=== PATIENT | female | born 1930 | race Hispanic/Latino ===

== ENCOUNTER 2017-03-09 00:40 | Inpatient (IN) | payer MEDICARE, OTHER ==
--- NOTE | 2017-03-09 01:24 | ED PDOC ---
Arrival/HPI - General Time Seen by Provider: 03/09/17 00:43 Historian: Family - History of Present Illness Narrative History of Present Illness (Text): 03/09/17 01:10 Rosalba James is an 87 year old female, whose past medical history includes bilateral hip replacement, kyphoscoliosis, and anxiety, who presents to the Emergency department brought in by EMS accompanied by niece complaining of hip pain. Niece states patient fell twice yesterday while walking at home and is now experiencing bilateral hip pain.Unclear why patient fell.Pt.doesn't recollect. Patient denies any headache,chest pain, abdominal pain, nausea, vomiting, or any other complaints. PMD: Dr. Diaz Orthopedist: Dr. Fan Symptom Onset: Gradual Symptom Course: Unchanged Activities at Onset: Light Context: Home Past Medical History - Provider Review Nursing Documentation Reviewed: Yes - Tetanus Immunization Tetanus Immunization: Unknown - Cardiac Hx Hypertension: Yes - Hematological/Oncological Hx Blood Transfusions: Yes Hx Blood Transfusion Reaction: No - Musculoskeletal/Rheumatological Hx Falls: Yes - Gastrointestinal Hx Gastrointestinal Disorders: No - Genitourinary/Gynecological Hx Genitourinary Disorders: No Hx Reproductive Disorders: No - Psychiatric Hx Substance Use: No - Surgical History Hx Appendectomy: Yes Hx Inguinal Hernia Repair: Yes Hx Orthopedic Surgery: Yes (BILAT HIPS) Other/Comment: CYCST REMOVAL - Anesthesia Hx Anesthesia: Yes Hx Anesthesia Reactions: No - Suicidal Assessment Feels Threatened In Home Enviroment: No Family/Social History - Physician Review Nursing Documentation Reviewed: Yes Family/Social History: Unknown Family HX Smoking Status: Never Smoked Hx Alcohol Use: No Hx Substance Use: No Hx Substance Use Treatment: No Allergies/Home Meds Allergies/Adverse Reactions: Allergies No Known Allergies Allergy (Verified 03/09/17 01:15) Home Medications: Home Meds Medication Instructions Recorded Confirmed Clonazepam [Klonopin] 1 mg PO QID 03/09/17 03/09/17 Metoprolol Succinate [Toprol XL] 25 mg PO HS 03/09/17 03/09/17 Review of Systems - Physician Review All systems were reviewed & negative as marked: Yes - Review of Systems Constitutional: Normal. absent: Fevers Eyes: Normal ENT: Normal Respiratory: Normal. absent: SOB, Cough Cardiovascular: Normal. absent: Chest Pain Gastrointestinal: Normal. absent: Abdominal Pain, Diarrhea, Nausea, Vomiting Genitourinary Female: Normal. absent: Dysuria, Frequency, Hematuria, Urine Output Changes Musculoskeletal: Arthralgias (+hip pain). absent: Back Pain, Neck Pain Skin: Normal. absent: Rash Neurological: Normal. absent: Headache, Dizziness Endocrine: Normal Hemo/Lymphatic: Normal Psychiatric: Normal Physical Exam Vital Signs Reviewed: Yes Vital Signs Temp Pulse Resp BP Pulse Ox 03/09/17 06:00 90 18 148/70 100 03/09/17 04:29 85 18 116/64 96 03/09/17 04:10 112 H 117/76 03/09/17 04:00 132 H 152/108 H 03/09/17 01:27 93 H 18 104/55 L 97 03/09/17 01:18 140 H 105/63 03/09/17 01:10 97.8 F 133 H 20 128/80 93 L Temperature: Afebrile Blood Pressure: Normal Pulse: Tachycardic Respiratory Rate: Normal Appearance: Positive for: Well-Appearing, Non-Toxic, Comfortable Pain Distress: None Mental Status: Positive for: Alert and Oriented X 3 - Systems Exam Head: Present: Atraumatic, Normocephalic Pupils: Present: PERRL Extroacular Muscles: Present: EOMI Conjunctiva: Present: Normal Mouth: Present: Moist Mucous Membranes Neck: Present: Normal Range of Motion Respiratory/Chest: Present: Clear to Auscultation, Good Air Exchange. No: Respiratory Distress, Accessory Muscle Use Cardiovascular: Present: Irregular Rhythm (Irregular, regular rhythm), Tachycardic. No: Murmurs Abdomen: Present: Normal Bowel Sounds. No: Tenderness, Distention, Peritoneal Signs Upper Extremity: Present: Normal Inspection. No: Cyanosis, Edema Lower Extremity: Present: NORMAL PULSES, Tenderness (Pain with flexion of right and left hip), Neurovascularly Intact, Capillary Refill < 2 s. No: Edema, Temperature Abnormalties Neurological: Present: GCS=15, CN II-XII Intact Skin: Present: Warm, Dry, Normal Color. No: Rashes Psychiatric: Present: Alert, Oriented x 3, Normal Insight, Normal Concentration Medical Decision Making ED Course and Treatment: 03/09/17 01:10 Impression: 87 year old female complaining of bilateral hip pain s/p 2 falls yesterday. Plan: -- CT Head w/o contrast -- EKG -- Chest X-ray -- XR Hip -- Labs, cardiac enzymes, blood type and screen -- Cardizem -- Reassess and disposition Progress Notes: Reviewed EKG, a fib at 134 bpm. Inferolateral T wave changes. 03/09/17 03:25 Reveiwed radiology, Chest X-ray shows chronic changes, no acute processes. XR Hips shows prosthesis in place, no acute fracture. 03/09/17 04:01 CT Head shows: Limitations: Suboptimal positioning. Brain: Moderate atrophy. No intracranial hemorrhage. No mass. Minimal decreased attenuation within periventricular white matter. No edema. Ventricles: No hydrocephalus. Bones/joints: Few small lucent calvarial lesions, nonspecific. No acute fracture. Soft tissues: Unremarkable. Vasculature: Minimal atherosclerotic disease of intracranial arteries. Sinuses: No acute sinusitis. Mastoid air cells: No mastoid effusion. Orbits: Unremarkable as visualized. IMPRESSION: 1. No intracranial hemorrhage. 2. Nonspecific white matter changes. 3. Incidental/non-acute findings are described above. 03/09/17 05:[address] Diaz, who is aware and agrees with plan. Accepts pt in to her service. Pt will go to Telemetry observation for near syncope, rapid atrial fibrillation, and hip pain. - Lab Interpretations Lab Results: 03/09/17 01:10 03/09/17 02:00 Lab Results 03/09/17 02:00: Blood Type O POSITIVE, Antibody Screen Negative, BBK History Checked Patient has bt 03/09/17 02:00: Sodium 142, Potassium 3.8, Chloride 106, Carbon Dioxide 28, Anion Gap 12, BUN 23 H, Creatinine 0.5 L, Est GFR ( Amer) > 60, Est GFR ( Non-Af Amer) > 60, Random Glucose 159 H, Calcium 9.8, Total Bilirubin 0.8, AST 33, ALT 30, Alkaline Phosphatase 74, Lactate Dehydrogenase 530, Total Creatine Kinase 113, Troponin I 0.19 H*, Total Protein 6.7, Albumin 3.9, Globulin 2.7, Albumin/Globulin Ratio 1.4 03/09/17 01:10: WBC 9.1, RBC 4.25, Hgb 13.6, Hct 41.4, MCV 97.4, MCH 32.0, MCHC 32.9, RDW 14.3, Plt Count 264, MPV 9.7 03/09/17 01:10: PT 11.8, INR 1.08, APTT 29.2 I have reviewed the lab results: Yes - RAD Interpretation Radiology Orders: 03/09/17 01:14 HEAD W/O CONTRAST [CT] Stat CHEST PORTABLE [RAD] Stat 03/09/17 01:15 Hip Bi with Pelvis Fall Protocol [HIP MIN 2V W/ PELVIS SILVESTRE] [RAD] Stat Crew Dispatcher: ED Physician, Radiologist - EKG Interpretation Interpreted by ED Physician: Yes Type: 12 lead EKG - Medication Orders Current Medication Orders: Diltiazem HCl 125 mg/ Sodium (Chloride) 125 mls @ 5 mls/hr IV .Q24H PRN; Protocol; 5 MG/HR PRN Reason: TITRATE PER MD ORDER Last Admin: 03/09/17 04:10 Dose: 5 mls/hr eMAR Start Stop Document 03/09/17 04:10 AD (Rec: 03/09/17 04:28 AD [id number]) Intravenous Solution Start Date 03/09/17 Start Time 04:10 MAY Pulse and Blood Pressure Document 03/09/17 04:10 AD (Rec: 03/09/17 04:28 AD [id number]) Pulse Pulse Rate (60-90) 112 Blood Pressure Blood Pressure (100/60-150/90) 117/76 Discontinued Medications Diltiazem HCl (Cardizem) 10 mg IVP ONCE ONE Stop: 03/09/17 01:17 Last Admin: 03/09/17 01:18 Dose: 10 mg IVP Administration Document 03/09/17 01:18 AD (Rec: 03/09/17 01:27 AD [id number]) Charges for Administration # of IVP Administrations 1 MAY Pulse and Blood Pressure Document 03/09/17 01:18 AD (Rec: 03/09/17 01:27 AD [id number]) Pulse Pulse Rate (60-90) 140 Blood Pressure Blood Pressure (100/60-150/90) 105/63 Diltiazem HCl (Cardizem) 10 mg IVP ONCE ONE Stop: 03/09/17 03:35 Last Admin: 03/09/17 04:00 Dose: 10 mg IVP Administration Document 03/09/17 04:00 AD (Rec: 03/09/17 04:27 AD [id number]) Charges for Administration # of IVP Administrations May Pulse and Blood Pressure Document 03/09/17 04:00 AD (Rec: 03/09/17 04:27 AD [id number]) Pulse Pulse Rate (60-90) 132 Blood Pressure Blood Pressure (100/60-150/90) 152/108 - Scribe Statement The provider has reviewed the documentation as recorded by the Scribjayne Bateman Provider Scribe Attestation: All medical record entries made by the Scribe were at my direction and personally dictated by me. I have reviewed the chart and agree that the record accurately reflects my personal performance of the history, physical exam, medical decision making, and the department course for this patient. I have also personally directed, reviewed, and agree with the discharge instructions and disposition. Disposition/Present on Arrival - Present on Arrival Any Indicators Present on Arrival: No History of DVT/PE: No History of Uncontrolled Diabetes: No Urinary Catheter: No History of Decub. Ulcer: No History Surgical Site Infection Following: None - Disposition Have Diagnosis and Disposition been Completed?: Yes Diagnosis: Near syncope, Frequent falls, Hip pain, Rapid atrial fibrillation Disposition: HOSPITALIZED Disposition Time: 04:11 Patient Plan: Admission Patient Problems: Current Active Problems Problem Status Onset Frequent falls Acute Hip pain Acute Near syncope Acute Rapid atrial fibrillation Acute Condition: STABLE
[2017-03-09 01:36] LABS: HEMOGLOBIN 13.6 g/dL (12.0-16.0); MEAN CELL VOLUME 97.4 fl (80.0-105.0); MEAN CORPUSCULAR HGB CONC 32.9 g/dl (31.0-37.0); MEAN PLATELET VOLUME 9.7 fl (7.0-11.0); RBC 4.25 10^6/uL (3.5-6.1); RED CELL DISTRIBUTION WIDTH 14.3 % (11.5-14.5); WHITE BLOOD COUNT 9.1 10^3/ul (4.5-11.0)
[2017-03-09 01:51] LABS: INR 1.08 (0.93-1.08); PARTIAL THROMBOPLASTIN TIME 29.2 Seconds (25.1-36.5); PROTHROMBIN TIME 11.8 SECONDS (9.4-12.5)
[2017-03-09 02:46] LABS: ALB/GLOB RATIO 1.4 (1.1-1.8); ALBUMIN 3.9 g/dL (3.0-4.8); ALT/SGPT 30 U/L (7-56); AST/SGOT 33 U/L (14-36); BLOOD UREA NITROGEN 23 mg/dL (7-21); CALCIUM 9.8 mg/dL (8.4-10.5); GFR AFRICAN-AMERICAN > 60; GFR NON-AFRICAN AMERICAN > 60
[2017-03-09 03:23] LABS: TROPONIN I 0.19 ng/mL
--- NOTE | 2017-03-09 04:00 | CT ---
EXAM: CT Head Without Intravenous Contrast CLINICAL HISTORY: 87 years old, female; Injury or trauma; Fall; Initial encounter; Concussion / head injury TECHNIQUE: Axial computed tomography images of the head/brain without intravenous contrast. All CT scans at this facility use one or more dose reduction techniques, viz.: automated exposure control; ma/kV adjustment per patient size (including targeted exams where dose is matched to indication; i.e. head); or iterative reconstruction technique. COMPARISON: No relevant prior studies available. FINDINGS: Limitations: Suboptimal positioning. Brain: Moderate atrophy. No intracranial hemorrhage. No mass. Minimal decreased attenuation within periventricular white matter. No edema. Ventricles: No hydrocephalus. Bones/joints: Few small lucent calvarial lesions, nonspecific. No acute fracture. Soft tissues: Unremarkable. Vasculature: Minimal atherosclerotic disease of intracranial arteries. Sinuses: No acute sinusitis. Mastoid air cells: No mastoid effusion. Orbits: Unremarkable as visualized. IMPRESSION: 1. No intracranial hemorrhage. 2. Nonspecific white matter changes. 3. Incidental/non-acute findings are described above.
[2017-03-09 05:28] LABS: URINE BILIRUBIN NEGATIVE (NEGATIVE); URINE BLOOD TRACE-INTACT (NEGATIVE); URINE GLUCOSE (UA) NEGATIVE (NEGATIVE); URINE LEUKOCYTE ESTERASE TRACE Leu/uL (NEGATIVE); URINE NITRATE POSITIVE (NEGATIVE); URINE PROTEIN TRACE mg/dL (<30 mg/dL); URINE UROBILINOGEN 0.2 E.U./dL (<1 E.U./dL)
[2017-03-09 05:30] LABS: URINE APPEARANCE CLEAR (CLEAR); URINE COLOR YELLOW (YELLOW)
[2017-03-09 05:40] LABS: URINE BACTERIA MANY (NEG); URINE EPITHELIAL CELLS 0 - 2 /hpf (0-5); URINE RBC 0 - 2 /hpf (0-2)
--- NOTE | 2017-03-09 08:48 | RAD ---
PROCEDURE: Radiographs of the pelvis and bilateral hips HISTORY: injury COMPARISON: None. FINDINGS: BONES: Pelvis: Unremarkable. Right hip:A minimally displaced cortical fracture is seen in the proximal femur adjacent to the femoral prosthesis Left hip:Unremarkable. JOINTS: Right hip: Unremarkable. Left hip: Unremarkable. Sacroiliac Joints: Unremarkable. Pubic symphysis: Unremarkable. SOFT TISSUES: Normal. OTHER FINDINGS: None. IMPRESSION: A minimally displaced cortical fracture is seen in the proximal femur adjacent to the femoral prosthesis
--- NOTE | 2017-03-09 08:48 | RAD ---
HISTORY: Fever COMPARISON: 03/20/2014. FINDINGS: LUNGS: The lungs are well inflated and clear. PLEURA: No significant pleural effusion identified, no pneumothorax apparent. CARDIOVASCULAR: There is severe cardiomegaly. OSSEOUS STRUCTURES: No significant abnormalities. VISUALIZED UPPER ABDOMEN: Normal. OTHER FINDINGS: None. IMPRESSION: Severe cardiomegaly.
--- NOTE | 2017-03-09 09:44 | CARD ---
APPROVED REPORT EKG Measurement Heart [id number] <Conclusion> A fib T wave abnormality, consider inferolateral ischemia Abnormal ECG
--- NOTE | 2017-03-09 10:18 | CT ---
PROCEDURE: CT of the hips HISTORY: possible fracture COMPARISON: Plain films 03/09/2017 TECHNIQUE: Radiation dose: Total exam DLP = 240 mGy-cm. This CT exam was performed using one or more of the following dose reduction techniques: Automated exposure control, adjustment of the mA and/or kV according to patient size, and/or use of iterative reconstruction technique. FINDINGS: Minimally displaced cortical fractures are seen in the proximal shaft of the right femur adjacent to the femoral portion of the right hip prosthesis. There is no displacement or angulation. IMPRESSION: Cortical fractures of the proximal shaft of the right femur
--- NOTE | 2017-03-09 12:29 | CON ---
DATE: ORTHOPEDIC CONSULTATION HISTORY OF PRESENT ILLNESS: The patient is an 87-year-old female with history of slipping and fall at home two or three times, who came to the ER with bilateral hip pain. She has previously had bilateral hip procedures for fractured hip for having bipolar hip prosthesis on the right and the left and when she fell with the osteopenic bone, she broke around the stem of the implant and it appears to be well controlled by the stem of the implant, so she does not need surgery for the contained fractures that are in the proximal femur with at least 4 inches of stem below the fracture, so that fracture will be held together spontaneously by the stem. So what she needs is good physical therapy with bed to chair activities, not ambulate for good 6 weeks until the fracture heals. So that means she will have to probably go to a subacute rehab after this hospital stay and to be cared for there by the fact that she needs to be not be weightbearing on both femur fractures, worse on the right than the left. Hopefully, we can get her to go to a facility, where they can carefully get her out of the bed to sit in a chair with help, because she cannot do it herself because of inability to put weight on the hips without undue pain and there is weakness in her upper extremities, but she will have to be taken to the chair with help of the nursing staff or the latest in at least 6 weeks till the bones heal. Surgery would not be compatible with her because of her age and the bones are so osteopenic, there is no hardware that would really hold up well, because it looks like she is on minimal ambulatory status to begin with. FINAL DIAGNOSES: Bilateral proximal femur fractures around the total hip procedure, stems that are holding the fracture together. Otherwise, the prosthesis looks intact and will have to watch her closely and give her good physical therapy, so when she gets out of bed, she does not hurt herself. Marc Fan DO
--- NOTE | 2017-03-09 13:11 | HP ---
HISTORY OF PRESENT ILLNESS: The patient is 87-year-old who has a very supportive niece, Makayla, who lives couple of blocks from the patient. She fell in the bathroom, was able to get up and walk. According to niece yesterday, she fell again, but was unable to get up. When she called her, she did not answer her phone, she went to see her, she was on the floor, did not lose consciousness, but she states she was so weak that she could not get up or walk, so she called ambulance and was brought to the Emergency Room. The patient currently complained of right hip and back pain. PAST MEDICAL HISTORY: She has significant past medical history of: 1. Hypertension. 2. Anxiety disorder. 3. Status post right hip replacement. 4. Kyphoscoliosis. ALLERGIES: THE PATIENT IS NOT ALLERGIC TO ANY MEDICATIONS. MEDICATIONS AT HOME: The patient is on Xanax 0.5 four times a day and vitamin D one q. weekly. SOCIAL HISTORY: She is single, lives by herself. She has a niece around who is very supportive. Neurologically, the patient was very supportive. REVIEW OF SYSTEMS: Significant for being very anxious. Complained of back pain and right hip pain. PHYSICAL EXAMINATION: GENERAL: She is awake, alert, oriented, and communicative. VITAL SIGNS: She is afebrile, pulse 94, respirations 19, and blood pressure 125/82. LUNGS: Bilateral good airflow. No rhonchi or crackles. HEART: S1 and S2 audible. ABDOMEN: Soft and nontender. No rebound or guarding. NEUROLOGIC: The patient is awake, alert, oriented, and communicative. LABORATORY DATA: WBC is 9.1, hemoglobin is 13, hematocrit is 41, and platelets 264. PT 11.8 and INR 1.08. Chemistry sodium 142, potassium 3.8, chloride 106, CO2 28, BUN 23, creatinine 0.5, and blood sugar of 159. LFTs are within normal limits. Troponin is 0.19. Urinalysis is unremarkable. ASSESSMENT: 1. Status post fall. 2. Unstable gait. 3. Deconditioning, difficulty walking. 4. Kyphoscoliosis. 5. Anxiety disorder. 6. New onset atrial fibrillation. PLAN: Currently, the patient is on telemetry. She is on Cardizem. We started small dose of diltiazem. Given the patient's age and high risk to fall, it is currently difficult to start her on anticoagulant. I will discuss with Dr. Mei and the patient's family and make further decisions. Barry Diaz MD
[2017-03-09 14:24] LABS: TROPONIN I 0.14 ng/mL
[2017-03-09 14:31] VITALS: BMI 16.1
[2017-03-09] MEDS ORDERED: Pneumococcal 23-Valent Vaccine IM ONE (14:32)
[2017-03-09] MEDS ORDERED: Influenza Vaccine 60 mcg/0.5 mL SYR (4YR UP) IM ONE (14:32)
--- NOTE | 2017-03-09 17:00 | CON ---
DATE: 03/09/2017 NEUROLOGY CONSULTATION CHIEF COMPLAINT: Status post fall. HISTORY OF PRESENT ILLNESS: This is an 87-year-old woman with a history of hypertension, anxiety disorder, status post right hip replacement, kyphoscoliosis, who fell in the bathroom, was able to get up and walk. According to her niece, she fell again, but was unable to get up, therefore came to the hospital and was generally weak. Her CAT scan of the head showed no acute intracranial abnormality. She had right hip pain. She had a CT of the hip which showed cortical fractures of the proximal shaft of the right femur and Orthopedic is on board and recommends physical therapy, which I agree with. No dizziness at this time. She is doing much better. PAST MEDICAL HISTORY: Hypertension, anxiety disorder, status post right hip replacement, kyphoscoliosis. ALLERGIES: NO KNOWN DRUG ALLERGIES. MEDICATIONS: Reviewed by nursing reconciliation sheet. SOCIAL HISTORY: No illicit drug use, smoking, or EtOH abuse. REVIEW OF SYSTEMS: A 14-point review of systems negative except in the HPI. FAMILY HISTORY: Noncontributory. PHYSICAL EXAMINATION: VITAL SIGNS: Temperature 98, pulse rate of 77, blood pressure of 106/62, respiratory rate 19, oxygen saturation 98% via room air. GENERAL: The patient is sitting up in bed, in no acute distress. HEENT: Head is atraumatic and normocephalic. PERRLA. Extraocular muscles are intact. NECK: Supple. No JVD. No adenopathy noted. LUNGS: Clear to auscultation. No adventitious sounds. HEART: S1 and S2. Normal rate and rhythm. No murmurs, rubs, or gallops. ABDOMEN: Soft, nontender, and nondistended. Bowel sounds are present. EXTREMITIES: No clubbing. No cyanosis. Peripheral pulses are 2+ felt bilaterally. NEUROLOGIC: The patient is alert and oriented to person, place, month, and year. Speech is fluent without any errors. Cranial nerves II through XII are intact. Motor exam: Moves all extremities equally. Slight increased tone throughout. Sensory exam: Light touch, pinprick, proprioception, and vibration is intact. DTRs are 2+ and 1 at both the knees and ankles. Coordination: [id number] intact. Gait is deferred for now. LABORATORY DATA: Sodium is 142, potassium is 3.9, chloride of 106, carbon dioxide of 28, BUN of 22, creatinine 0.5, and random glucose of 159. ASSESSMENT AND PLAN: It is a 87-year-old woman with history of hypertension, anxiety disorder, status post right hip replacement, kyphoscoliosis who had near syncopal events and history of falls. She had a recent fall where she had right side of her hip. She has history of bilateral proximal femur fractures and total hip replacement procedures. She has cortical fractures seen on the CT scan of the hip over the right shaft of the femur. Orthopedics has evaluated the patient, who said that surgery could not be compatible because of her age and her bones are very osteopenic. She is deconditioned. At this time, I recommend, 1. Orthostatic vital signs. 2. Given her new onset atrial fibrillation and HAS-BLED score is above 3, would be extreme risk for her to be on anticoagulation due to risk of multiple falls. 3. We will get Physical Therapy/Occupational Therapy assessment and would likely need a subacute rehab. 4. Monitor electrolytes and correct accordingly. 5. Follow with Orthopedics recommendation in regards to her osteopenia and history of hip replacement. At this time, thank you for this consult. No further neurological workup needed. Joaquín Jackson MD
[2017-03-09] MEDS: Metoprolol Succinate 25 mg XL Tab PO SCH (22:59)
[2017-03-10] MEDS: Pantoprazole 40 mg EC Tab PO SCH (06:00)
[2017-03-10 06:39] LABS: ALB/GLOB RATIO 1.4 (1.1-1.8); ALBUMIN 3.7 g/dL (3.0-4.8); ALT/SGPT 31 U/L (7-56); AST/SGOT 30 U/L (14-36); BLOOD UREA NITROGEN 22 mg/dL (7-21); GFR AFRICAN-AMERICAN > 60; GFR NON-AFRICAN AMERICAN > 60; MAGNESIUM 2.3 mg/dL (1.7-2.2)
[2017-03-10 06:50] LABS: TROPONIN I 0.08 ng/mL
[2017-03-10 06:58] LABS: FREE T4 1.11 ng/dL (0.78-2.19)
--- NOTE | 2017-03-10 09:40 | CON ---
DATE: 03/09/2017 LOCATION: The patient is in room 277, bed 1. REASON FOR CONSULTATION: Atrial fibrillation, hypertension. HISTORY OF PRESENT ILLNESS: An 87-year-old female who lives alone. According to niece, patient fell twice. First time, she was able to get up, but second time, she fell but could not get up so when she did not answer the phone call of the niece, the niece went there and found her lying on the floor but she was not unconscious. Patient was brought to the hospital, found to have atrial fibrillation, and patient complained of right hip and back pain. Patient denied any palpitation or chest pain or shortness of breath. PAST MEDICAL HISTORY: Positive for status post right hip replacement, kyphoscoliosis, hypertension, anxiety disorder. ALLERGIES: PATIENT DENIES ANY ALLERGIES. MEDICATIONS AT HOME: Patient was on Xanax 0.5 mg 4 times a day and vitamin D once a day. PERSONAL HISTORY: No history of smoking or drinking. REVIEW OF SYSTEMS: All the systems reviewed. Positive mentioned in the history, otherwise, negative. PHYSICAL EXAMINATION: VITAL SIGNS: Blood pressure 143/68, respirations 19, pulse 72, and temperature 98.1. HEENT: Head is normocephalic. Eyes; pupils are normal. Conjunctivae are normal. Nose and throat are normal. NECK: JVP low. Carotids are equal. THORAX: AP diameter normal. LUNGS: Clear. CARDIOVASCULAR: S1 and S2. ABDOMEN: Soft. Nontender. No organomegaly. Bowel sounds are normal. EXTREMITIES: No clubbing. No cyanosis. LABORATORY DATA: WBC 9.1, hemoglobin 13.6, hematocrit 41.4, and platelets 264. Sodium 142, potassium 3.8, BUN 23, creatinine 0.5. Total bilirubin, AST, ALT normal. Cholesterol 131, triglycerides 74, HDL 48, LDL 70. Troponin first one was 0.19, second 0.14. EKG showed atrial fibrillation, heart rate around admission was about 134, some ST-T changes. Chest x-ray showed clear lungs, there is cardiomegaly present. DIAGNOSES: Status post fall due to unsteady gait, kyphoscoliosis, hypertension, anxiety disorder, new onset of atrial fibrillation, troponin elevation. PLAN: Troponin elevation suggestive of non-ST elevation myocardial infarction, anticoagulation for atrial fibrillation is risky because the patient has tendency to fall; however, start the patient on aspirin one daily. Patient is already on Cardizem drip 5 mg daily. Patient already on Mobic 15 mg p.o. daily, also on Protonix 40 daily, metoprolol succinate 25 mg p.o. at bedtime, Xanax 0.5 q.i.d. The patient's heart rate is around 80, so we will discontinue the Cardizem drip. Patient is already on Cardizem 30 mg p.o. t.i.d. Adding Plavix along with Mobic and aspirin might be risk for also GI bleeding in this 87-year-old fragile patient. We will do echocardiogram, recheck TSH. We will discuss with you and follow with you. Stacy Smith MD
--- NOTE | 2017-03-10 13:04 | PN ---
DATE: REASON FOR CONSULTATION: Atrial fibrillation and hypertension. SUBJECTIVE: The patient denies any chest pain, shortness of breath or any palpitations. OBJECTIVE: GENERAL: Not in apparent distress. VITAL SIGNS: As follows; temperature afebrile, heart rate 99, and blood pressure 130/71. HEENT: PERRLA intact. NECK: Supple. No carotid bruits. No thyromegaly. CHEST: Clear to auscultation. HEART: S1 and S2 regular. ABDOMEN: Soft. EXTREMITIES: Clubbing and cyanosis negative. LABORATORY DATA: WBC 9.2, hemoglobin 13.2, hematocrit 41.4, and platelet count 264. Chemistry shows sodium 142, potassium 4, chloride 104, carbon dioxide 32, anion gap of 10, BUN 22, and creatinine 0.9. Troponin 0.19, 0.14, and 0.08. TSH is 0.32. Coagulation profile INR 1.08. IMPRESSION AND PLAN: Status post fall, unsteady gait, kyphoscoliosis, hypertension, anxiety disorder, atrial fibrillation, and elevated troponin. The patient on admission with troponin 0.19 and 0.14, now the troponin trended to 0.08. Status post fall. Positive troponin. Possible nonischemic myocardial infarction, possible coronary artery disease asymptomatic, atrial fibrillation new onset. Troponin elevated because of the age and unsteady gait. Hard of hearing, all these comorbidities asymptomatic. We will treat patient conservatively. Continue Cardizem 30 mg and change Cardizem [address] Smith. Continue baby aspirin. Continue beta-wilberto. Followup serial CPK, troponin with echo for LV function. We will do repeat SMA-7 and CBC tomorrow and the troponin trend tomorrow. Awaiting for TSH to be completed. We will add TSH. Because the patient is asymptomatic, unsteady gait, high risk for long-term anticoagulation though the patient is in atrial fibrillation, also the patient is asymptomatic and no complaints of any chest pain, borderline troponin positive,so we will try to treat medically. We will get echo to assess LV function. Repeat troponin in the morning. Stacy Mei MD [facility] # [id number]
[2017-03-10] MEDS: cefTRIAXone 1 gm 1 GM/100 ML BAG IVPB SCH (14:28)
--- NOTE | 2017-03-10 21:36 | PN ---
DATE: SUBJECTIVE: The patient is an 87-year-old who fell twice at home and when brought to ER, was found to have AFib. Because of high risk fall, anticoagulant was not started; however, she is on diltiazem and her heart rate seems to be controlled. PHYSICAL EXAMINATION: GENERAL: Looks very anxious; however, eating and tolerating. VITAL SIGNS: She is afebrile, pulse 69, respirations 18, and blood pressure 117/67. LUNGS: Bilateral good airflow. No rhonchi or crackles. HEART: S1 and S2 audible. Irregular rate control. ABDOMEN: Soft and nontender. No rebound. No guarding. NEUROLOGIC: The patient is awake and alert. Able to communicate. She is very kyphotic and pigeon-shaped chest. EXTREMITIES: Bilateral leg, no edema. Has difficulty moving her lower extremities. LABORATORY DATA: Her sodium 142, potassium 4.0, chloride 104, CO2 of 32, BUN 22, creatinine 0.6, and blood sugar of 102. LFTs are within normal limits. Her third troponin is 0.08. Urine cultures are negative. Her CT scan of the hip shows cortical fracture of proximal shaft of right femur. ASSESSMENT: 1. New onset atrial fibrillation. 2. Status post fall. 3. Kyphoscoliosis. 4. Anxiety disorder. 5. Unstable gait. PLAN: The patient needs subacute rehab. She is refusing to go any place. She in home. She is always well rested and as far as her AFib is concerned, we will give her medication to rate control and it was mutually decided talking to the patient's niece and the patient has felt there is high risk to put her on any anticoagulation, so web content & social media manager will talk to the patient, if she is agreeable, she will be transferred to subacute rehab. I will discontinue telemetry since her heart rate is under control and we will make discharge plan. If the patient agree for TCU, she will be transferred to TCU tomorrow; otherwise, subacute rehab versus the home therapy. Barry Diaz MD
[2017-03-10] MEDS: Metoprolol Succinate 25 mg XL Tab PO SCH (22:05)
[2017-03-11] MEDS: Pantoprazole 40 mg EC Tab PO SCH (05:50)
[2017-03-11 05:55] LABS: TROPONIN I 0.05 ng/mL
[2017-03-11 06:10] LABS: BLOOD UREA NITROGEN 18 mg/dL (7-21); CALCIUM 9.8 mg/dL (8.4-10.5); GFR AFRICAN-AMERICAN > 60; GFR NON-AFRICAN AMERICAN > 60; MAGNESIUM 2.1 mg/dL (1.7-2.2)
[2017-03-11 06:28] VITALS: RESP 20; TEMP 98.1; O2SAT 93
[2017-03-11] MEDS: cefTRIAXone 1 gm 1 GM/100 ML BAG IVPB SCH (10:28)
--- NOTE | 2017-03-11 13:18 | PN ---
DATE: An 87-year-old female with paraprosthetic fracture right femur around the stem of a well placed bipolar prosthesis. Her pain is much less. We are going to try to get her up out of bed and start ambulation with a walker, protected weightbearing to tolerance. This fracture is stable because of the stem of the prosthesis is holding the fracture together and with the weightbearing that is going to occur with walking, it will actually compress the fracture to stimulate the heal sooner. I will follow her in the hospital, rehab hospital or at home. Marc Fan DO
--- NOTE | 2017-03-11 20:45 | PN ---
DATE: SUBJECTIVE: The patient is an 87-year-old, seen and examined, lying in bed, seems to be comfortable except low back pain and right hip pain. PHYSICAL EXAMINATION: VITAL SIGNS: She is afebrile. pulse 97, respirations 20, and blood pressure 120/80. LUNGS: Bilateral fair airflow. No rhonchi or crackle. HEART: S1 and S2 audible. ABDOMEN: Soft and nontender. No rebound. No guarding. NEUROLOGIC: The patient is awake, alert, and oriented. EXTREMITIES: Able to move lower extremity because of limited mobility secondary to pain. She has significant kyphoscoliosis, also bilateral leg, no edema. LABORATORY DATA: Sodium 138, potassium 4.1, chloride 102, CO2 of 20, BUN 18, creatinine 0.6, blood sugar of 102. Urinalysis is unremarkable. Blood culture shows E. coli. ASSESSMENT AND PLAN: 1. Status post fall. 2. Right femur nondisplaced fracture being held by previous prosthesis. 3. Escherichia coli urinary tract infection. 4. Anxiety disorder. PLAN: We will start the patient on p.o. Cipro. Discussed with Dr. Marc Fan, who thinks the patient can help protective weightbearing. The patient is not clear if she want to go to subacute rehab. However, she is willing to go to TCU. Barry Diaz MD
[2017-03-11] MEDS: Metoprolol Succinate 25 mg XL Tab PO SCH (22:15)
--- NOTE | 2017-03-11 23:11 | PN ---
DATE: 03/11/2017 REASON FOR CONSULTATION AND FOLLOWUP: Atrial fibrillation and hypertension. SUBJECTIVE: The patient denies any chest pain, shortness of breath or any palpitations. PHYSICAL EXAMINATION: VITAL SIGNS: As follows; temperature afebrile, heart rate 64, and blood pressure 123/80. HEENT: PERRLA intact. NECK: Supple. No carotid bruits. No thyromegaly. CHEST: Clear to auscultation. HEART: S1 and S2 regular. ABDOMEN: Soft. EXTREMITIES: Clubbing and cyanosis negative. LABORATORY DATA: Blood workup as follows; WBC 9.2, hemoglobin 13.0 and hematocrit 41.6. IMPRESSION: Status post fall, unsteady gait, kyphoscoliosis, hypertension, anxiety disorder,atrial fibrillation, and elevated troponin. In view of above, treat the patient medically, not a candidate for invasive workup. Continue Cardizem 60 mg. Continue metoprolol succinate 25 mg, not a candidate for long-term anticoagulation. Thank you *------* for providing us the opportunity in taking care of the patient, Rosalba James. Stacy Mei MD cc: *------*
[2017-03-12] MEDS: Pantoprazole 40 mg EC Tab PO SCH (05:46)
[2017-03-12] MEDS ORDERED: Cefpodoxime (Vantin) 200 mg Tab PO SCH (10:00)
--- NOTE | 2017-03-12 12:40 | PN ---
DATE: LOCATION: In room 576, bed 2. SUBJECTIVE: Patient was initially admitted on 03/09/2017 for paraprosthetic fracture of the right worse than the left femur with a well-impacted fracture in the proximal part of the femoral shaft contained by the stem of the total hip replacement on the femur. I would like to treat the patient conservatively because of the nature of the fracture is well contained by the femoral stem of the total hip replacement and the fracture is stable and we will allow her to put weight on it and hopefully it will consolidate to the point where she does not need surgery. Surgery would only be needed if she cannot tolerate the discomfort. It appears to be that she is less pain today which is 03/12/2017 compared to when she came in on 03/09/2017. ASSESSMENT AND PLAN: So see how she does hopefully, she can go to TCU for ambulation with a walker. I explained to the family she should go to our subacute rehab hospital or emergency room because she really should not live alone anymore because the bones are so fragile and her age of 87 puts her in a category where she could have a fall very easily if left alone. So I will follow her in the hospital, and hopefully the fracture consolidates enough not to have surgery, and if anything happens inappropriate, she may need a major surgery to stabilize the right femur which will have to be a large metal plate going from the hip down to the knee. Marc Fan DO [facility]
--- NOTE | 2017-03-12 15:36 | PN ---
DATE: 03/12/2017 LOCATION: The patient is in room 576, bed 2. REASON FOR CONSULTATION: Atrial fibrillation and hypertension. SUBJECTIVE: The patient is lying flat in bed, without chest pain, shortness of breath or palpitation. PHYSICAL EXAMINATION: VITAL SIGNS: Blood pressure 122/79, when I examined the patient, the pulse was around 110 to 120 per minute irregular due to atrial fibrillation, the patient is afebrile, and respirations are 18. HEENT: Head is normocephalic. Eyes; pupils are normal. Conjunctivae normal. Nose and throat normal. NECK: JVP low. Carotids are equal. THORAX: AP diameter normal. The patient has kyphoscoliosis. LUNGS: No significant rales. CARDIOVASCULAR: S1 and S2. ABDOMEN: Soft. No tenderness. No organomegaly. Bowel sounds normal. EXTREMITIES: No clubbing. No cyanosis. LABORATORY DATA: WBC 9.1, hemoglobin 13.6, hematocrit 41.4, and platelets 264. Sodium 138, potassium 4.1, BUN 18, and creatinine 0.6. Troponin is 0.05; on medical floor, one troponin was 0.19, second was 0.14, third was 0.08. DIAGNOSES AND PLAN: The patient had multiple falls, atrial fibrillation, kyphoscoliosis, hypertension, elevated troponin when the patient was on medical floor. The patient's falls, so she is not a candidate for anticoagulation. Also it was decided to treat the patient's elevated troponin medically. The patient is not a good candidate for cardiac catheterization at this point. The patient also gets confused. The patient is on metoprolol succinate 25 daily. We will give stat metoprolol 25 regular now and then we will change metoprolol succinate to 50 mg daily to better control the heart rate. The patient is on aspirin one a day. We will follow with you. Stacy Smith MD
[2017-03-12 16:04] VITALS: BP 123/74; PULSE 86
[2017-03-12] MEDS ORDERED: Metoprolol Succinate 50 mg XL Tab PO SCH (18:00)
--- NOTE | 2017-03-13 02:58 | DS ---
HISTORY OF PRESENT ILLNESS: The patient is an 87-year-old who fell at home twice. When she came to ER, she was found to be in AFib and was seen by Dr. Smith. Given her age and comorbidities and multiple fall, it was decided not to put her on anticoagulations, so she is just on rate control medication. After fall, she also sustained injury to her right femur and was evaluated by Dr. Fan and was advised protected weightbearing and being transferred to [facility] for rehab. PHYSICAL EXAMINATION: GENERAL: She is awake, alert, oriented, and communicative. VITAL SIGNS: She is afebrile, pulse 83, respirations 18, and blood pressure 123/74. LUNGS: Bilateral fair airflow. No rhonchi or crackles. HEART: S1 and S2 audible. ABDOMEN: Soft and nontender. No rebound. No guarding. NEUROLOGIC: The patient is awake, alert, oriented, able to communicate, and has difficulty walking because of the pain in both hips. LABORATORY DATA: Today's lab work shows WBC 3.6, hemoglobin 10.4, hematocrit 35.1, and platelet 98. Chemistry, sodium 140, potassium 4.3, chloride 105, CO2 of 27, BUN 19, creatinine 0.5, and blood sugar of 95. Urinalysis is unremarkable. ASSESSMENT: 1. New onset of atrial fibrillation. 2. Status post fall. 3. Kyphoscoliosis. 4. Right femur shaft cortical fracture. 5. Hypertension. 6. Deconditioning and difficulty walking. PLAN: The patient agreed for subacute rehab. She is being transferred to [facility] today. We will discharge her on diltiazem 60 mg three times a day, Cipro 250 mg twice a day for 5 days, aspirin 81 mg daily, Mobic 15 mg daily, Protonix 40 daily, metoprolol 50 mg daily, and Xanax q.6 hours. She will be followed by Dr. Barnett in [facility]. Barry Diaz MD
== END 2017-03-12 17:37 | DRG 534 ==
LOC: ED 00:40 → ERH 04:11 → 2RSO 10:24 → 5RSO 03-11 11:51
PROVIDERS: ADMIT Internal Medicine; ATTEND Internal Medicine
DX: S72.392A Other fracture of shaft of left femur, initial encounter for closed fracture (principal); M97.01XA Periprosthetic fracture around internal prosthetic right hip joint, initial encounter; N39.0 Urinary tract infection, site not specified; I48.91 Unspecified atrial fibrillation; M41.9 Scoliosis, unspecified; R55 Syncope and collapse; F41.9 Anxiety disorder, unspecified; I10 Essential (primary) hypertension; B96.20 Unspecified Escherichia coli [E. coli] as the cause of diseases classified elsewhere; W18.30XA Fall on same level, unspecified, initial encounter; R26.2 Difficulty in walking, not elsewhere classified; R29.6 Repeated falls; Y93.01 Activity, walking, marching and hiking; Y92.012 Bathroom of single-family (private) house as the place of occurrence of the external cause; Z79.01 Long term (current) use of anticoagulants

== ENCOUNTER 2017-03-24 13:16 | Inpatient (IN) | payer OTHER ==
[2017-03-23 21:25] VITALS: BMI 17.0
[2017-03-23 22:16] VITALS: PULSE 120
[2017-03-24] MEDS ORDERED: Morphine PCA 1 mg/ml (25ml) 25 ML IV PRN (13:40)
[2017-03-24] MEDS ORDERED: Pneumococcal 23-Valent Vaccine IM ONE (20:03)
[2017-03-24] MEDS ORDERED: Influenza Vaccine 60 mcg/0.5 mL SYR (4YR UP) IM ONE (20:03)
[2017-03-24] MEDS: Morphine PCA 1 mg/ml (25ml) 25 ML IV PRN (21:31)
[2017-03-25] MEDS: Morphine PCA 1 mg/ml (25ml) 25 ML IV PRN ×3 (06:03→23:18)
--- NOTE | 2017-03-25 11:21 | CP.PCM.CON ---
History of Present Illness - History of Present Illness History of Present Illness: 87 year old female with history of HTN, hip fracture who was sent from [facility] with altered mental stats/weakness. 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 She is now under [facility] PMHx:A fib, syncope, frequent falls, hip fracture. Social History; Non smoker, no alcohol or drugs. Family History: Non contributory Advance Care Planning: The patient has POA directive, Makayla Cheung niece. The POA has made her DNR/DNI Review of Systems:As per HPI, the patient is comatose, non verbal. Past Patient History - Infectious Disease Hx of Infectious Diseases: None - Tetanus Immunizations Tetanus Immunization: Unknown - Past Social History Smoking Status: Never Smoked - CARDIAC Hx Cardiac Disorders: Yes Hx Cardia Arrhythmia: Yes (AFIB) Hx Hypertension: Yes - PULMONARY Hx Respiratory Disorders: No - NEUROLOGICAL Hx Neurological Disorder: Yes (near syncope) Hx Dizziness: Yes Other/Comment: CODE STROKE 03-23-17 - HEENT Hx HEENT Problems: Yes Hx Deafness: Yes ([place]) Other/Comment: glasses - RENAL Hx Chronic Kidney Disease: No - ENDOCRINE/METABOLIC Hx Endocrine Disorders: No - HEMATOLOGICAL/ONCOLOGICAL Hx Blood Disorders: Yes Hx Anemia: Yes (blood transfusion) - INTEGUMENTARY Hx Dermatological Problems: Yes Other/Comment: 03-23-17 L BRUISE TO FOOT,RIGHT INNER THIGH BRUISED AREA. MID BACK WITH A RASH,BLANCHABLE AREA. .ONYCHOMYCHOTIC NAILS. - MUSCULOSKELETAL/RHEUMATOLOGICAL Hx Musculoskeletal Disorders: Yes (khyposcoliosis) Hx Back Pain: Yes Hx Falls: Yes (multiple falls.Last fell 03-08-16) Hx Fractures: Yes (hip fx LEFT,RIGHT FEMUR) Hx Unsteady Gait: Yes - GASTROINTESTINAL Hx Gastrointestinal Disorders: No - GENITOURINARY/GYNECOLOGICAL Hx Genitourinary Disorders: Yes (urgency ,frequency) - PSYCHIATRIC Hx Substance Use: No - SURGICAL HISTORY Hx Surgeries: Yes Hx Appendectomy: Yes Hx Orthopedic Surgery: Yes (BILAT HIPS) Other/Comment: CYCST REMOVAL - ANESTHESIA Hx Anesthesia: Yes Hx Anesthesia Reactions: No Meds Allergies/Adverse Reactions: Allergies Allergy/AdvReac Type Severity Reaction Status Date / Time No Known Allergies Allergy Verified 03/23/17 16:03 - Medications Medications: Current Medications Acetaminophen (Tylenol 650 Mg Supp) 650 mg RC Q4H PRN PRN Reason: Fever >100.4 F Morphine Sulfate (Morphine Director Employee Communications 1 Mg/Ml) 25 mls @ 3 mls/hr IV PRN PRN; Protocol ; 3 MG/HR PRN 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 PER MD ORDER Last Admin: 03/25/17 06:03 Dose: 3 mg/hr, 3 mls/hr Lorazepam (Ativan) 1 mg IVP Q6H PRN; Protocol PRN Reason: Anxiety Physical Exam - Constitutional Appears: Cachectic, Chronically Ill - Head Exam Head Exam: NORMAL INSPECTION - Eye Exam Pupil Exam: Fixed - ENT Exam ENT Exam: Mucous Membranes Dry, Normal Oropharynx - Respiratory Exam Respiratory Exam: Decreased Breath Sounds Additional comments: agonal breathing pattern - Cardiovascular Exam Cardiovascular Exam: Irregular Rhythm, +S1, +S2 - GI/Abdominal Exam GI & Abdominal Exam: Diminished Bowel Sounds, Hypoactive Bowel Sounds, Soft - Extremities Exam Extremities exam: Positive for: pedal pulses present - Skin Skin Exam: Dry, Pallor - Additional Findings Additional findings: Palliative performance scale rating 10 % Results - Vital Signs Recent Vital Signs: Last Vital Signs Temp Pulse Resp 20 03/24/17 19:46 BP Pulse Ox Assessment & Plan - Assessment and Plan (Free Text) Assessment: 87 year old female s/p who is now under [facility] services for symptom management and end of life care. The patients pupils are fixed. She has agonal breathing pattern.She occasionally moans, otherwise unresponsive . The patients niece/POA Makayla at bedside. Signs of impending explained. Questions answered. End of life counseling/psychosocial support provided. Time spent in providing end of life care and counseling, 30 minutes Plan: Morphine 2mg/hr IV continuos infusion Ativan 1 mg IV every 6 hours as needed Tylenol 650 mg RC as needed for fever Scopolamine transdermal patch
[2017-03-25 23:04] VITALS: BP 90/50; PULSE 96; O2SAT 96
[2017-03-26] MEDS: Morphine PCA 1 mg/ml (25ml) 25 ML IV PRN ×2 (07:18→16:32)
--- NOTE | 2017-03-26 09:40 | CP.PCM.PN ---
Subjective - Date & Time of Evaluation Date of Evaluation: 03/26/17 Time of Evaluation: 09:00 - Subjective Subjective: Pupils fixed. 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 PER MD ORDER Last Admin: 03/26/17 07:18 Dose: 3 mg/hr, 3 mls/hr Lorazepam (Ativan) 1 mg IVP Q6H PRN; Protocol PRN Reason: Anxiety Scopolamine (Transderm-Scop) 1 patch TD Q3D KRISTIN - Constitutional Appears: Cachectic, Chronically Ill - Eye Exam Pupil Exam: Fixed - ENT Exam ENT Exam: Mucous Membranes Dry - Neck Exam Neck Exam: Normal Inspection - Respiratory Exam Respiratory Exam: Decreased Breath Sounds - Cardiovascular Exam Cardiovascular Exam: Irregular Rhythm, +S1, +S2 - GI/Abdominal Exam GI & Abdominal Exam: Diminished Bowel Sounds - Exam Additional comments: oliguria - Extremities Exam Extremities Exam: Normal Capillary Refill - Neurological Exam Additional comments: comatose - Skin Skin Exam: Dry, Warm Assessment and Plan - Assessment and Plan (Free Text) Assessment: 87 year old female with history of HTN , large left MCA who is under [facility] services for pain and symptom management. .End of life counseling and psychosocial support for family member.. Plan: Renew scopolamine transdermal patch Continue Morphine infusion at 3 mg/hr. Ativan as needed
[2017-03-26 12:26] VITALS: TEMP 103
[2017-03-26 17:50] VITALS: RESP 12
[2017-03-27] MEDS: Morphine PCA 1 mg/ml (25ml) 25 ML IV PRN ×3 (01:54→18:40)
--- NOTE | 2017-03-28 02:29 | CP.PCM.PN ---
Subjective - Date & Time of Evaluation Date of Evaluation: 03/28/17 Time of Evaluation: 02:27 - Subjective Subjective: pt with no response ,no pulse ,no BP, not breathing . pt was hospice at 2:20 am. 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
== END 2017-03-28 02:20 | DRG 64 ==
LOC: CCU 13:16 → 5RNO 16:06
PROVIDERS: ADMIT Internal Medicine Medical Oncology; ATTEND Internal Medicine Medical Oncology
DX: I63.512 Cerebral infarction due to unspecified occlusion or stenosis of left middle cerebral artery (principal); Z51.5 Encounter for palliative care; R40.20 Unspecified coma; R64 Cachexia; Z68.1 Body mass index [BMI] 19.9 or less, adult; Z66 Do not resuscitate; I10 Essential (primary) hypertension; I48.91 Unspecified atrial fibrillation; R29.6 Repeated falls